=== PATIENT | male | born 1955 | race African-American/Black ===

== ENCOUNTER 2019-02-03 14:15 | Emergency (ER) | payer MEDICAID ==
[~2019-02-03] VITALS: Ht 172.7 cm; Wt 68.2 kg
[2019-02-03 16:20] VITALS: BP 118/74
== END 2019-02-03 16:22 | disposition home or self-care (01) ==
LOC: EMS 14:17
DX: F10.20 Alcohol dependence, uncomplicated (principal); F12.10 Cannabis abuse, uncomplicated; F14.10 Cocaine abuse, uncomplicated; Y90.9 Presence of alcohol in blood, level not specified

== ENCOUNTER 2020-12-25 13:50 | Emergency (ER) | payer MEDICAID ==
[~2020-12-25] VITALS: Ht 172.7 cm; Wt 68.2 kg
[2020-12-25 13:53] VITALS: BP 157/99
== END 2020-12-25 14:05 | disposition left against medical advice (07) ==
LOC: EMS 14:05
DX: H66.92 Otitis media, unspecified, left ear (principal)
CPT/HCPCS: 99283